=== PATIENT | male | born 1950 | race Caucasian/White ===

== ENCOUNTER → 2018-04-05 07:32 | Outpatient (CLI) | payer MEDICARE, OTHER, SELFPAY ==
--- NOTE | 2018-04-05 | DI.US.S_ITS ---
PROCEDURE: US ABD AORTA ANEURYSM SCREEN INDICATIONS: ABDOMINAL AORTIC ANEURYSM SCREENING TECHNIQUE: Real time scanning was performed of the aorta and iliac arteries, with image documentation. COMPARISON: None. FINDINGS: Aorta: Proximal aortic diameter measures 2.4 cm. Mid-aorta measures 1.8 cm. Distal aortic diameter is 1.6 cm. Iliac arteries: Right common iliac artery measures 0.8 cm. Left common iliac artery measures 0.8 cm. IMPRESSION: No aneurysm found. No dissection suspected. Dictated by: Leandro Chilel M.D. on 04/05/2018 at 9:25 Approved by: Leandro Chilel M.D. on 04/05/2018 at 9:26
== END ==
PROVIDERS: PCP Family Medicine; Visit Provider Family Medicine
DX: Z13.6 Encounter for screening for cardiovascular disorders (principal)
CPT/HCPCS: 76706

== ENCOUNTER → 2020-07-25 08:36 | Outpatient (CLI) | payer MEDICARE, OTHER, SELFPAY ==
[2020-07-25 12:20] LABS: COVID19 -Nasal RAPID Negative (Negative)
== END ==
PROVIDERS: PCP Family Medicine; Visit Provider Student in an Organized Health Care Education/Training Program
DX: Z20.822 Contact with and (suspected) exposure to COVID-19 (principal)
CPT/HCPCS: 87635; C9803

== ENCOUNTER 2020-07-27 11:52 | Day surgery (SDC) | payer MEDICARE, OTHER, SELFPAY ==
[2020-07-27] VITALS (9 sets, daily range): BP systolic 105–184; BP diastolic 63–92; PULSE 51–60; RESP 13–16; TEMP 36.2–37; O2SAT 95–99; BMI 25.0
--- NOTE | 2020-07-27 | PATH_ITS ---
[facility] Accession Number: [id number] . 01 Material submitted: . PART A: colon - ASCENDING COLON POLYP 3MM PART B: sigmoid colon - SIGMOID POLYP 2MM . 01 Clinical history: . SCREENING COLONOSCOPY . 02 Diagnosis: A. Ascending Colon, Polyp 3 mm, Biopsy: Colonic mucosa with no diagnostic abnormality, consistent with polypoid redundancy. Additional levels were examined. Negative for dysplasi and malignancy. . B. Sigmoid Colon, Polyp 2 mm, Biopsy: Hyperplastic polyp. V 08/01/2020 1217 Local . 02 Electronically signed: . Dedra Collier MD, Pathologist NPI- [id number] . 01 Gross description: . A. The specimen is received in formalin, labeled ascending colon polyp, and consists of a 0.5 x 0.4 x 0.2 cm mustafa-pink fragment of soft tissue which is entirely submitted in cassette A1. B. The specimen is received in formalin, labeled sigmoid polyp, and consists of a 0.4 x 0.3 x 0.2 cm mustafa fragment of soft tissue which is entirely submitted in cassette B1. ([id number]) /[facility] 07/28/2020 1400 Local . 02 Pathologist provided ICD-10: Z12.11, K63.5 . 02 CPT . 688008, [id number] Performed at: 01 [facility] Cytology [address] [place] [address], [place], [place] [id number] MD Crow Singleton MD Phone: [phone] Performed at: 02 [facility] [address] [place], [place] [id number] MD Dedra Collier MD Phone: [phone]
--- NOTE | 2020-07-27 11:50 | PM.HP.1 ---
History of Present Illness History of Present Illness Date Patient Seen: 07/27/20 Chief complaint: SCREENING COLONOSCOPY Narrative: 69 year old male comes in today for consideration of a screening colonoscopy. Last colonoscopy 01/30/2011 was normal. There have been no lower GI symptoms suggesting disease such as change in bowel habits, bleeding, abdominal pain or anemia. There's been no family history of colon cancer or colon polyps. Overall health issues have been stable, including no major cardiac events for at least 6 weeks. PCP: Dr. Degroot Past medical history: Hyperlipidemia GERD Hyperglycemia Tremor Eczema Seborrheic keratosis Smoker Past surgical history: Carpal tunnel release, 2018 Colonoscopy, 2010, normal Family history: Father: Alcoholic, diabetes mellitus type 2, hypertension, hyperlipidemia, gastric cancer Mother: Cerebral aneurysm Social history: , retired electrician technician, . Eleventh grade education. Meds Home Medications and Allergies Home Medications Medication Instructions Recorded Confirmed Type atorvastatin 20 mg PO ONCE PM 07/27/20 07/27/20 History omeprazole 20 mg PO DAILY 07/27/20 07/27/20 History Allergies Allergy/AdvReac Type Severity Reaction Status Date / Time No Known Drug Allergies Allergy Verified 07/27/20 12:44 Review of Systems Review of Systems ROS: Yes All systems reviewed with the patient and are negative except as otherwise documented Exam Narrative Exam Narrative: GENERAL: Alert and oriented, appearing stated age and in no acute distress. HEENT: Head normocephalic/atraumatic. Neck soft and supple, no lymphadenopathy. LUNGS: Clear to ausculation bilaterally, no wheezes, rhonchi or rales. CV: Normal S1 and S2 with regular rate and rhythm, no audible murmurs, rubs or gallops. ABDOMEN: Soft, non-tender, non-distended, no organomegaly. Positive bowel sounds. EXTREMITIES: No clubbing, cyanosis, or edema. NEURO: Cranial nerves II through XII grossly intact, no focal deficits. PSYCH: Alert and oriented x 3. SKIN: No concerning lesions. Assessment & Plan Assessment & Plan narrative: 1. Screening for colon cancer Plan for colonoscopy. The nature and character of the procedure as well as anticipated results were discussed. The possibility of not completing the procedure was also discussed. Possible complications including aspiration pneumonia, bleeding, perforation and reaction to medications either for sedation or preparation and missed lesions were discussed. Questions were answered and proceeding to the colonoscopy was elected. Informed consent signed. I sincerely appreciate the referral allowing me to participate in this patient's care. Please contact me with any questions or concerns.
--- NOTE | 2020-07-27 11:57 | PM.OP.ENDO ---
Operative Date/Time/Diagnoses Date of procedure: 07/27/20 Procedure Notes SCOAP/Timeout: 1:20 p.m. Procedure in detail: ENDOSCOPIST: Cynthia Roland MD Sedation RN: Denice Mckeon RN Sedation start time: 1:21 p.m. Sedation end time: 1:42 p.m. PROCEDURE: Colonoscopy with cold biopsy INDICATIONS: 1. Screening for colon cancer MEDICATION: Levsin 0.125 mg sublingual, incremental doses of Versed and fentanyl until appropriate level sedation achieved. ASA CLASS: 2 CECAL WITHDRAWAL TIME: 11 minutes COMPLICATIONS: None. EXTENT OF PROCEDURE: Cecum. QUALITY OF PREP: Good with portions of liquid stool. PROCEDURE: Prior to insertion of the colonoscope, a digital rectal examination was accomplished with circumferential palpation of the distal rectal mucosa without significant findings being noted. The high-definition colonoscope was passed into the rectum in the usual fashion and advanced over to the cecum without difficulty. The ileocecal valve, appendiceal stoma, and medial wall all could be inspected and no abnormalities were seen. ASCENDING COLON: As the colonoscope was withdrawn, care was taken to expose and inspect the haustral folds and no abnormalities were seen, a 3 mm polyp was seen and removed with cold biopsy, excellent hemostasis. HEPATIC FLEXURE: Normal, no polyps, diverticula or other abnormalities. TRANSVERSE COLON: Normal, no polyps, diverticula or other abnormalities. DESCENDING COLON: Normal, no polyps, diverticula or other abnormalities. SIGMOID COLON: A 2 mm polyp was seen and removed with cold biopsy forceps. Otherwise, a lone diverticula and no other abnormalities. RECTUM: Normal. J maneuver was produced. There was no significant perianal disease. The J maneuver was broken. The remainder of the rectum was inspected and there was minor external hemorrhoid disease. The scope was withdrawn. IMPRESSION: 1. Ascending polyp x1, 3 mm, removed with cold biopsy forceps 2. Sigmoid polyp x1, 2 mm, removed with cold biopsy forceps 3. Diverticula x1, sigmoid 4. External hemorrhoids, mild PLAN: 1. Follow-up in clinic status post pathology results. The possibility of a missed lesion including a malignancy has been discussed with the patient previously. Potential alarm symptoms have been discussed and should be reported immediately.
[2020-07-27] MEDS: LACTATED RINGERS 1,000 ML 200 ML IV (12:36)
[2020-07-27] MEDS: HYOSCYAMINE 0.125 MG TABLET PO (12:51)
[2020-07-27] MEDS: fentaNYL 250 MCG/5 ML INJ IV (13:28)
[2020-07-27] MEDS: MIDAZOLAM 5 MG/5 ML VIAL IV (13:28)
== END 2020-07-27 14:56 | disposition home or self-care (01) ==
PROVIDERS: PCP Family Medicine; Referring Provider Student in an Organized Health Care Education/Training Program; Visit Provider Student in an Organized Health Care Education/Training Program
PROC: 0DJD8ZZ Inspection of Lower Intestinal Tract, Via Natural or Artificial Opening Endoscopic (ICD-10-PCS; CPT 45378; principal; 2020-07-27 13:00)
DX: Z12.11 Encounter for screening for malignant neoplasm of colon (principal); K64.4 Residual hemorrhoidal skin tags; K57.30 Diverticulosis of large intestine without perforation or abscess without bleeding; K63.5 Polyp of colon
CPT/HCPCS: 45380; J2250; J3010